=== PATIENT | male | born 1955 | race Caucasian/White ===

== ENCOUNTER 2017-03-08 10:26 | Inpatient (IN) | payer MEDICAID ==
[~2017-03-08] VITALS: Ht 154.9 cm; Wt 80.1 kg
[2017-03-08 11:22] LABS: BASOPHIL % 0.5 % (0-2); PLATELET COUNT 264 x10^3mcL (130-400); RED CELL DISTRIBUTION WIDTH 12.8 % (11.5-14.5)
[2017-03-08 11:32] LABS: CALCIUM 8.8 mg/dL (8.5-10.1); CARBON DIOXIDE 27.1 mmol/L (21-32); CHLORIDE SERUM 101 mmol/L (98-107); CREATININE SERUM 0.8 mg/dL (0.7-1.3); GFR1 > 60 mL/min; GLUCOSE SERUM 124 mg/dL (74-106); POTASSIUM SERUM 4.6 mmol/L (3.5-5.1); SODIUM SERUM 134 mmol/L (136-145)
[2017-03-08 11:37] LABS: ALBUMIN 3.6 g/dL (3.4-5.0); ALKALINE PHOSPHATASE 73 U/L (46-116); ALT/SGPT 38 U/L (16-63); AST/SGOT 27 U/L (15-37); BILIRUBIN TOTAL 0.63 mg/dL (0.20-1.00); LIPASE 135 IU/L (73-393); TOTAL PROTEIN, SERUM 7.9 g/dL (6.4-8.2)
[2017-03-08] MEDS ORDERED: MOT800 PO (13:25)
[2017-03-08] MEDS ORDERED: NEU300 PO (14:16)
[2017-03-08] MEDS ORDERED: BENAZEPRIL HYDR20 M1 PO (14:16)
[2017-03-08 14:19] LABS: PHOSPHOROUS 3.6 mg/dL (2.5-4.9)
[2017-03-08 14:21] LABS: CHOLESTEROL/HDL RATIO 5.9
[2017-03-08 14:24] LABS: T3 TOTAL 1.01 ng/mL
[2017-03-08 14:31] VITALS: BP 151/106
[2017-03-08 14:45] LABS: FREE T4 0.77 ng/dL (0.76-1.46); FREE THYROXINE INDEX 1.8 ug/dL (1.4-4.5); T4(THYROXINE) 4.8 ug/dL (4.7-13.3)
[2017-03-08 17:29] VITALS: BP 138/88
[2017-03-08 17:49] LABS: microscopic required? NO
[2017-03-08 18:00] LABS: UA SPECIFIC GRAVITY >=1.030 (1.005-1.035); urine erythrocyte NEGATIVE (NEGATIVE)
[2017-03-08 18:09] LABS: AMPHETAMINE QUAL UR NONE DETECTED (NEG <=1000)
[2017-03-08 21:48] VITALS: BP 112/77
[2017-03-09 06:12] VITALS: BP 112/68
[2017-03-09 06:57] LABS: BASOPHIL % 0.4 % (0-2); PLATELET COUNT 245 x10^3mcL (130-400); RED CELL DISTRIBUTION WIDTH 12.6 % (11.5-14.5)
[2017-03-09 07:08] LABS: CALCIUM 8.4 mg/dL (8.5-10.1); CARBON DIOXIDE 22.1 mmol/L (21-32); CHLORIDE SERUM 105 mmol/L (98-107); CREATININE SERUM 0.8 mg/dL (0.7-1.3); GFR1 > 60 mL/min; GLUCOSE SERUM 121 mg/dL (74-106); MAGNESIUM 1.9 mg/dL (1.8-2.4); PHOSPHOROUS 3.9 mg/dL (2.5-4.9); POTASSIUM SERUM 4.5 mmol/L (3.5-5.1); SODIUM SERUM 136 mmol/L (136-145)
[2017-03-09 09:00] VITALS: BP 119/76
[2017-03-09 12:35] VITALS: BP 122/85
== END 2017-03-09 15:40 | disposition left against medical advice (07) | DRG 203 ==
LOC: ED 10:26 → DU 13:20
PROVIDERS: Emergency Medicine; ADMIT Family Medicine
DX: R07.9 Chest pain, unspecified (principal); I50.43 Acute on chronic combined systolic (congestive) and diastolic (congestive) heart failure; I27.20 Pulmonary hypertension, unspecified; E87.1 Hypo-osmolality and hyponatremia; I11.0 Hypertensive heart disease with heart failure; M94.0 Chondrocostal junction syndrome [Tietze]; K21.9 Gastro-esophageal reflux disease without esophagitis; E11.9 Type 2 diabetes mellitus without complications; M54.32 Sciatica, left side; M54.31 Sciatica, right side; J98.11 Atelectasis; M43.17 Spondylolisthesis, lumbosacral region; E78.5 Hyperlipidemia, unspecified; Z68.33 Body mass index [BMI] 33.0-33.9, adult
CPT/HCPCS: 82962; 83880; 84439; 87046; 87046-59; 90658; 94150; J1885; J2405; J7030; Q0092

== ENCOUNTER 2019-10-15 09:28 | Emergency (ER) | payer OTHER ==
[~2019-10-15] VITALS: Ht 154.9 cm; Wt 79.4 kg
[~2019-10-15 09:28] MED LIST: BENAZEPRIL HYDR20 M1 PO; MOT800 PO; NEU300 PO
[2019-10-15 09:31] VITALS: BP 157/84; Ht 154.9 cm; Wt 79.4 kg
== END 2019-10-15 10:17 | disposition home or self-care (01) ==
LOC: ED 09:28
DX: L25.9 Unspecified contact dermatitis, unspecified cause (principal); I10 Essential (primary) hypertension
CPT/HCPCS: J7512

== ENCOUNTER 2020-01-15 07:12 | Emergency (ER) | payer OTHER, SELFPAY ==
[~2020-01-15] VITALS: Ht 154.9 cm; Wt 80.7 kg
[2020-01-15 07:14] VITALS: Ht 154.9 cm; Wt 80.7 kg
[2020-01-15 08:26] VITALS: BP 128/81
== END 2020-01-15 08:52 | disposition home or self-care (01) ==
LOC: ED 07:12
DX: U07.1 COVID-19 (principal); J40 Bronchitis, not specified as acute or chronic; I10 Essential (primary) hypertension; Z89.022 Acquired absence of left finger(s)
CPT/HCPCS: Q0092; U0003-CS

== ENCOUNTER 2020-01-19 00:54 | Emergency (ER) | payer OTHER ==
[~2020-01-19] VITALS: Ht 154.9 cm; Wt 80.7 kg
[2020-01-19 00:56] VITALS: Ht 154.9 cm; Wt 80.7 kg
[2020-01-19 03:06] VITALS: BP 146/83
== END 2020-01-19 03:05 | disposition home or self-care (01) ==
LOC: ED 00:54
DX: U07.1 COVID-19 (principal); J12.89 Other viral pneumonia; I10 Essential (primary) hypertension; Z89.022 Acquired absence of left finger(s)
CPT/HCPCS: Q0092